=== PATIENT | male | born 1995 | race Caucasian/White ===

== ENCOUNTER 2018-01-20 21:43 | Emergency (ER) | payer BC, OTHER ==
[~2018-01-20] VITALS: Ht 162.6 cm; Wt 81.6 kg
[2018-01-20 21:47] VITALS: BP 110/61
--- NOTE | 2018-01-20 21:49 | NUR ---
TO BED # 5 VIA W/C, REPORT GIVEN TO FIORDALIZA DEUTSCH.
--- NOTE | 2018-01-20 22:24 | NUR ---
22Y/M BIB FAMILY PT WAS AT WORK AND LIFTED A BIN THEN HAD BACK PAIN AND STATES HE CANNOT SIT UP STRAIGHT OR WALK W/ BACK STRAIGHT NOW. PT IS ABLE TO WALK AND MOVE LEGS BUT STATES "IT HURTS".
[2018-01-20] MEDS ORDERED: DIAZEPAM 5 MG TAB PO ONE (22:50)
[2018-01-20] MEDS ORDERED: KETOROLAC 30 MG/ML VIAL IM ONE (22:50)
--- NOTE | 2018-01-20 23:30 | NUR ---
Dr. Duvall evaluating patient at bedside.
[2018-01-20] MEDS ORDERED: MORPHINE SULFATE 4 MG/ML SYR IM ONE (23:35)
[2018-01-21 00:45] VITALS: BP 131/71
--- NOTE | 2018-01-21 00:46 | NUR ---
Patient discharged with v/s stable. Written and verbal after care instructions given and explained. Patient alert, oriented and verbalized understanding of instructions. Wheel Chair Assisted with by caregiver. All questions addressed prior to discharge. ID band removed. Patient advised to follow up with PMD. Rx of VALIUM, NAPROSYN given. Patient educated on indication of medication including possible reaction and side effects. Opportunity to ask questions provided and answered.
== END 2018-01-21 00:46 | disposition home or self-care (01) ==
LOC: MED 21:43
DX: S39.012A Strain of muscle, fascia and tendon of lower back, initial encounter (principal); Z88.0 Allergy status to penicillin; X58.XXXA Exposure to other specified factors, initial encounter; Y93.89 Activity, other specified; Y92.89 Other specified places as the place of occurrence of the external cause; Y99.8 Other external cause status
CPT/HCPCS: 96372; 99284; J1885; J2270

== ENCOUNTER 2019-03-17 08:25 | Emergency (ER) | payer MEDICAID, OTHER ==
[~2019-03-17] VITALS: Ht 167.6 cm; Wt 83.6 kg
[2019-03-17 08:29] VITALS: BP 112/66
[2019-03-17] MEDS: KETOROLAC 30 MG/ML VIAL IM ONE (09:00)
[2019-03-17 09:10] VITALS: BP 110/67
== END 2019-03-17 09:10 | disposition home or self-care (01) ==
LOC: MED 08:25
DX: M54.9 Dorsalgia, unspecified (principal); Z88.0 Allergy status to penicillin
CPT/HCPCS: 96372; 99283; J1885